=== PATIENT | female | born 1990 | race American Indian/Alaskan Native ===

== ENCOUNTER 2016-11-15 10:57 | Emergency (ER) | payer SELFPAY ==
[2016-11-15 13:32] LABS: Bilirubin,Urine NEG (Negative); Blood,Urine LG (Negative); Ketones,Urine NEG (Negative); Leukocyte Esterase,Urine NEG (Negative); Mucus,Urine FEW /HPF; Nitrite,Urine NEG (Negative); Protein,Urine <15 mg/dL mg/dL (Negative)
[2016-11-15 13:55] LABS: Basophils % (Auto) 0.5 % (0.0-1.8); Eosinophils % (Auto) 0.8 % (0.0-4.3); Hematocrit 38.9 % (30.3-42.9); Hemoglobin 12.6 gm/dl (10.1-14.3); Mean Corpuscular HGB Conc 32 % (30-34); Mean Corpuscular Hemoglobin 29 pg (28-32); Mean Corpuscular Volume 89 fl (79-97); Platelet Count 307 K/mm3 (140-440); Red Blood Count 4.36 M/mm3 (3.65-5.03); Red Cell Distribution Width 14.4 % (13.2-15.2)
[2016-11-15 14:37] LABS: Alanine Aminotransferase 15 units/L (7-56); Albumin/Globulin Ratio 1.3 %; Alkaline Phosphatase 44 units/L (35-129); Anion Gap 18 mmol/L; Bilirubin,Total 0.4 mg/dL (0.1-1.2); Blood Urea Nitrogen 12 mg/dL (7-17); Calcium 9.2 mg/dL (8.4-10.2); Carbon Dioxide 23 mmol/L (22-30); Glucose 90 mg/dL (65-100); Lipase 20 units/L (13-60); Potassium 4.3 mmol/L (3.6-5.0); Sodium 138 mmol/L (137-145); Total Protein 7.2 g/dL (6.3-8.2)
[2016-11-16] MEDS ORDERED: MOTRIN PO ONE (09:16)
--- NOTE | 2016-11-16 09:16 | Emergency Department Report ---
ED Abdominal Pain HPI - General Chief Complaint: Abdominal Pain Stated Complaint: ABD PAIN Source: patient Mode of arrival: Ambulatory Limitations: No Limitations - History of Present Illness Initial Comments: 26-year-old -Finnish female with no known past medical history comes in today for complaint of lower abdominal pain that started hurting about a week ago. Patient denies any nausea vomiting or diarrhea. She states that she does have some chills" with night sweats. She does report pain is worse when she is walking. She does admit to have abnormal cycles. She reports she took naproxen with no relief. He is sexually active with one partner in the last month using no protection. She does report bowels are normal. Denies any dysuria. MD Complaint: abdominal pain -: week(s) (1) Location: LLQ, suprapubic Severity scale (0 -10): 10 Quality: stabbing, aching Consistency: constant Improves With: nothing Worsens With: movement Associated Symptoms: denies other symptoms - Related Data Previous Rx's Medication Instructions Recorded Last Taken Type Acetaminophen/Codeine [Tylenol 1 tab PO Q4HR PRN #20 tablet 11/16/16 Unknown Rx /Codeine # 3 tab] Allergies Allergy/AdvReac Type Severity Reaction Status Date / Time No Known Allergies Allergy Unverified 11/15/16 12:22 ED Review of Systems ROS: Stated complaint: ABD PAIN Other details as noted in HPI ED Past Medical Hx - Past Medical History Previous Medical History?: No - Surgical History Past Surgical History?: No - Social History Smoking Status: Current Every Day Smoker Substance Use Type: None - Medications Home Medications: Home Medications Medication Instructions Recorded Confirmed Last Taken Type Acetaminophen/Codeine [Tylenol 1 tab PO Q4HR PRN #20 tablet 11/16/16 Unknown Rx /Codeine # 3 tab] ED Physical Exam - General Limitations: No Limitations General appearance: alert, in no apparent distress - Head Head exam: Present: atraumatic, normocephalic - Eye Eye exam: Present: normal appearance, PERRL - ENT ENT exam: Present: mucous membranes moist - Speculum exam: Present: vaginal discharge, cervical discharge. Absent: erythema , vaginal bleeding, laceration Bi-manual exam: Present: normal bi-manual exam. Absent: cervical motion tendernes, adnexal tenderness, adnexal mass, uterine tenderness - Extremities Exam Extremities exam: Present: normal inspection - Neurological Exam Neurological exam: Present: alert, oriented X3 - Psychiatric Psychiatric exam: Present: normal affect, normal mood - Skin Skin exam: Present: warm, dry, intact ED Course Vital Signs 11/15/16 11/16/16 11/16/16 12:22 09:28 11:35 Temperature 98.5 F Pulse Rate 67 Respiratory 18 16 16 Rate Blood Pressure 123/77 O2 Sat by Pulse 100 100 Oximetry ED Medical Decision Making - Lab Data Result diagrams: 11/15/16 13:21 11/15/16 13:21 - Radiology Data Radiology results: report reviewed, image reviewed Uterus measures 9.2 x 4.7 x 5.5 cm. Endometrial thickness 15.9 mm. No mass within the endometrium. No mass in the myometrium. Right ovary measures 7.2 x 6.8 x 6.1 cm. Complex cyst is identified in the right ovary measuring 5.7 cm x 5.7 cm. Left ovary 3.7 x 1.9 x 1.8 cm. No mass. No fluid in the cul-de-sac. Impression: Complex cyst right ovary. Thick endometrium. Findings: Normal lung bases. No pleural or pericardial effusion. Normal liver spleen pancreas and gallbladder. Normal adrenals kidney parenchyma and bladder. No free intraperitoneal fluid or air. No evidence of adenopathy. Normal aorta. 5.3 x 4.2 cm thickwalled cyst identified to the right of the midline in the pelvis probably ovarian. Displacement of the uterus to the left of the midline. Appendix diameter 6 mm with thick enhancing wall. Periappendiceal stranding is noted. No fluid collection or evidence of air in the retroperitoneum. Gaseous colon with moderate volume stool in colon. No bowel distention. Impression: Findings suggesting acute appendicitis with reactive changes in the adjacent right ovarian cyst. Transcribed By: PTP Dictated By: ELIZABETH CASTILLO MD Electronically Authenticated By: ELIZABETH CASTILLO MD Signed Date/Time: 11/16/16 1005 - Medical Decision Making Patient's been evaluated by this provider fast track. Patient's had lab work note elevation of WBCs. Urinalysis shows large amount of blood but no RBCs. Urinalysis shows no WBCs. Discussed with Dr. Tran we will order a CK as well as an CAT scan with contrast abdomen and pelvic. We will order patient ibuprofen for pain. Patient verbalizes understanding. Discuss finding well Dr. Edouard( surgery) he requested to have OB see her first. Discuss with Dr. Macdonald she requested a tranvaginal US. Discuss the findings with Dr. Macdonald she felt that the right ovary cyst can be followed up with OB as an outpatient basis. Awaiting for reevaluation from Dr. Edouard. Have been keeping patient up to date on her progress. Discuss with Dr. Edouard he felt that the patient is stable to be discharge home with instructs to return to ER is she develops a fever, nausea or worsen pain. Patient verbalized understanding. She will follow up with Dr. Macdonald ob. Numbers to her office as well as numbers to Dr. Edouard's office provided. Discuss with patient to call back in 3-7 days for results of chlamydia and gonorrhea test. Patient verbalized understanding. Critical care attestation.: If time is entered above; I have spent that time in minutes in the direct care of this critically ill patient, excluding procedure time. ED Disposition Clinical Impression: Ovarian cyst Qualifiers: Laterality: right Qualified Code(s): N83.201 - Unspecified ovarian cyst, right side Disposition: DISCHARGED TO HOME OR SELFCARE Is pt being admited?: No Does the pt Need Aspirin: No Condition: Stable Instructions: Abdominal Pain (ED), Ovarian Cyst (ED) Additional Instructions: Very important for you to follow up with the OB provider. Please return to the emergency room if he spike a fever greater than 100.9. Pain is unbearable. Nausea vomiting. I have listed the [facility] as well as the surgeon that you were evaluated by. Prescriptions: Acetaminophen/Codeine [Tylenol /Codeine # 3 tab] 1 tab PO Q4HR PRN #20 tablet PRN Reason: Pain Referrals: PRIMARY CAREMD [Primary Care Provider] - 3-5 Days [facility] [Provider Group] - 3-5 Days ROSAURA MACDONALD MD [Staff Physician] - 3-5 Days GUSTAVO SHAFFER MD [Staff Physician] - 3-5 Days Forms: Work/School Release Form(ED)
[2016-11-16] MEDS ORDERED: NACL ONE ×2 (09:20→09:22)
--- NOTE | 2016-11-16 10:13 | Cat Scan Report ---
CT scan of abdomen and pelvis with IV contrast: History: Lower abdominal pain. Findings: Normal lung bases. No pleural or pericardial effusion. Normal liver spleen pancreas and gallbladder. Normal adrenals kidney parenchyma and bladder. No free intraperitoneal fluid or air. No evidence of adenopathy. Normal aorta. 5.3 x 4.2 cm thickwalled cyst identified to the right of the midline in the pelvis probably ovarian. Displacement of the uterus to the left of the midline. Appendix diameter 6 mm with thick enhancing wall. Periappendiceal stranding is noted. No fluid collection or evidence of air in the retroperitoneum. Gaseous colon with moderate volume stool in colon. No bowel distention. Impression: Findings suggesting acute appendicitis with reactive changes in the adjacent right ovarian cyst.
--- NOTE | 2016-11-16 10:35 | Admit Criteria Form ---
Admission Criteria Documentation: ABDOMINAL PAIN Clinical Indications for Admission to Inpatient Care (Place 'X' for any and all applicable criteria): Admission is indicated for ANY ONE of the following(1)(2)(3)(4)(5): [X]I. Inpatient admission required rather than observation care (Also use Abdominal Pain: Observation Care, as appropriate) because of ANY ONE of the following: [X]a) Severe pain requiring acute inpatient management [ ]b) Identification of etiology/finding that requires inpatient care (eg, aortic dissection, free air) [ ]c) Absent bowel sounds with complete ileus(6) [ ]d) Suspected toxic megacolon [ ]e) Severe electrolyte abnormalities requiring inpatient care [ ]f) High fever or infection requiring inpatient admission as indicated by ANY ONE of following(7)(8): [ ] i) Appropriate outpatient or observational care antimicrobial treatment unavailable, not effective, or not feasible [ ] ii) Documented bacteremia [ ] iii) Temperature > 104.9 degrees F (oral) [ ] iv) T >103.1 F (oral) or < 96.8 F(rectal) that does not respond to all emergency treatment measures [ ]g) Signs of intestinal obstruction [B] [ ]h) Hemodynamic instability [ ]i) IV fluid to replace significant ongoing losses (greater than 3 L/m2 per day) (12)(13) [ ]j) Percutaneous or open drainage (eg, abscess, biliary tract ) procedures [ ]k) Parenteral nutrition regimen that must be implemented on inpatient basis [ ]l) Other condition,treatment or monitoring requiring inpatient admission. [ ]II. Peritoneal signs present [ ]III. Surgery needed that cannot be performed on an ambulatory basis. [X]IV. Evaluation requires patient to not eat or drink for extended period ( eg, more than 24 hours). [ ]V. Contraindications and/or Inappropriate clinical situations for Observational Care in patients with abdominal pain, when ANY ONE of the following is required: [ ]a) Thorough evaluation is required to prevent catastrophic events due to delays in diagnosing (e.g.Mesenteric ischemia) 1,3 [ ]b) Patient with severe pathology or with chronic symptoms unlikely to improve in the ED stay (3) [ ]. General contraindications and/or Inappropriate clinical situations for Observational Care in patients with abdominal pain, when ANY ONE of the following is required: [ ]a) Prediction of prolongation of LOS based on ANY ONE of the following may be considered as a contraindication for observational care 2, 3, 4, 5, 6, 7, 8, 9, 10, 11 [ ]i) Age > 65 yrs. [ ]ii) Patient arriving by ambulance [ ]iii) Patient with high acuity [ ]iv) Patient requiring vital sign monitoring [ ]v) Patient on IV medication [ ]b) Systolic blood pressures 180mmHg 3,12 [ ]c) Patient with altered mental status including delirium and other alteration of consciousness, (3) [ ]d) Patient whose discharge disposition will be to a snf home or rehabilitation home should not be managed in Emergency Department Observation Unit. CMS rule requires 3 days hospital stay before such placement.3,13 [ ]e) Patient with failure to thrive due to broad array of etiologies 3,16,17 [ ]f) Inability to ambulate 3,14 Extended stay beyond goal length of stay may be needed for(2)(3): [ ]a) Persistent abdominal pain with suspected intra-abdominal process [ ]b) Diagnosed condition requiring continued stay (e.g., pancreatitis, complicated diverticulitis) [ ]c) Surgery (e.g., colectomy) The original [facility] content created by [employer] has been revised. The portions of the content which have been revised are identified through the use of italic text or in bold, and [facility] has neither reviewed nor approved the modified material.All other unmodified content is copyright [facility]. Please see references footnoted in the original [facility] edition 2016
[2016-11-16] MEDS ORDERED: NACL 0.9% 500 ML 500 ML IV ONE (11:18)
--- NOTE | 2016-11-16 12:56 | Ultrasound Report ---
Transvaginal sonography: History: Concern for right ovary. Findings: Uterus measures 9.2 x 4.7 x 5.5 cm. Endometrial thickness 15.9 mm. No mass within the endometrium. No mass in the myometrium. Right ovary measures 7.2 x 6.8 x 6.1 cm. Complex cyst is identified in the right ovary measuring 5.7 cm x 5.7 cm. Left ovary 3.7 x 1.9 x 1.8 cm. No mass. No fluid in the cul-de-sac. Impression: Complex cyst right ovary. Thick endometrium.
[2016-11-16 17:27] VITALS: BP 121/70
--- NOTE | 2016-11-17 02:57 | Consultation ---
HISTORY OF PRESENT ILLNESS: I was called by our Emergency Room doctor to see this patient. She is a 26-year-old black female that she has been having on and off pain to the lower abdomen on both sides of about 6 months now. She had the same about ____ years ago, but nothing specific was done on her. She denied any nausea, any vomiting. She had no problem with her bowel movements. She denies any blood per rectum. The pain was continuous sometimes. At this time, this has been there for about 3-4 days. She was evaluated by our ER physician and apparently, her CBC showed a white count of 11,000. CT scan showed questionable dilated appendix; however, notes that she had a fairly good sized ovary on the right side. The appendix was found to be attached to the cyst. The cyst is about 5.5 cm. Of interest in her history is that she had no period for about 6 months now. She had questionable on hormonal therapy for her periods. She denied any surgery in the past. ALLERGIES: Allergic reactions were denied. PHYSICAL EXAMINATION: GENERAL: At this point showed a well preserved, healthy-looking young black female. She does not look in pain to me. HEAD AND NECK: Essentially negative. NECK: Supple. BREASTS: Symmetric. CHEST: Essentially clear. HEART: Sounds normal to me. ABDOMEN: Protuberant, soft, benign. Very minimal tenderness in the right lower quadrant. EXTREMITIES: Showed no evidence of any edema. IMPRESSION: Lower abdominal pain, etiology of which is unknown, probably an ovarian cyst on the right side. I doubt if there is appendicitis there. There is no muscle guarding and there is no severe tenderness. She was seen by doctor, our senior publications specialist. I was told that she is on the observation. At this point, the patient was eager to go home. I have no problem with that. I get to her to call me if she has any problem, otherwise to see a senior publications specialist and to call me for any reason. FINAL DIAGNOSIS: Abdominal pain, etiology probably an ovarian cyst. I doubt if there is appendicitis. To check her temperature. To call me if it is above 100. JOB# [id number] LAI/FRANK
== END 2016-11-16 17:26 | disposition home or self-care (01) ==
LOC: ED 10:57
DX: N83.201 Unspecified ovarian cyst, right side (principal); F17.200 Nicotine dependence, unspecified, uncomplicated
CPT/HCPCS: 36415; 74177; 76830; 80053; 81001; 81025; 82550; 83690; 84702; 85025; 87210; 87591; 96360; 99285; J7040; Q9967